=== PATIENT | female | born 1995 | race Caucasian/White ===

== ENCOUNTER 2022-06-17 21:37 | Day surgery (SDC) | payer BC, OTHER ==
[2022-06-17 21:43] VITALS: BMI 31.1
[2022-06-17] MEDS ORDERED: ACETAMINOPHEN 1000 MG/100 ML BAG IVPB ONE (22:44)
[2022-06-17] MEDS ORDERED: SODIUM CHLORIDE 0.9% 500 ML INFUS.BAG IV ONE (22:50)
[2022-06-17] MEDS ORDERED: ACETAMINOPHEN INJECTION 100 ML IVPB ONE (22:51)
[2022-06-17 22:58] LABS: EPI CELLS 18 /uL (0-25.1); HYALINE CASTS 0 /uL (0-3.1); URINE APPEARANCE CLEAR; URINE BACTERIA 186 /uL (0-1359); URINE BILIRUBIN NEGATIVE (NEGATIVE); URINE COLOR ORANGE; URINE GLUCOSE (UA) NEGATIVE (NEGATIVE); URINE KETONE NEGATIVE (NEGATIVE); URINE LEUK ESTERASE 1+ (NEGATIVE); URINE NITRITE NEGATIVE (NEGATIVE); URINE PROTEIN TRACE (NEGATIVE); URINE RBC 658 /uL (0-23.9); URINE WBC 35 /uL (0-25.8)
[2022-06-17 23:19] LABS: BASO % 0.2 % (0-2.0); EOS % 3.5 % (0-4.5); HEMATOCRIT 34.6 % (32.4-45.2); HEMOGLOBIN 11.8 GM/dL (10.7-15.3); LYMPH % 10.8 % (8-40); MCH 31.3 pg (25.7-33.7); MEAN CELL VOLUME 92.1 fl (80-96); MEAN PLT VOLUME 9.8 fl (7.5-11.1); MONO % 13.1 % (3.8-10.2); NEUT % 72.4 % (42.8-82.8); PLATELET COUNT 175 10^3/uL (134-434); RBC 3.76 M/mm3 (3.60-5.2); RDW 12.5 % (11.6-15.6); WHITE BLOOD COUNT 8.6 K/mm3 (4.0-10.0)
[2022-06-17 23:26] LABS: INR 1.15 (0.83-1.09); PROTHROMBIN TIME (PATIENT) 13.3 SEC (9.7-13.0)
[2022-06-17 23:29] LABS: ACTIVATED PTT 29.2 SECONDS (25.2-36.5)
[2022-06-17 23:45] LABS: CALCIUM 8.9 mg/dL (8.5-10.1)
[2022-06-17 23:46] LABS: ALBUMIN 3.9 g/dl (3.4-5.0)
[2022-06-17 23:49] LABS: CREATININE 0.7 mg/dL (0.55-1.3)
[2022-06-17 23:50] LABS: BILIRUBIN,TOTAL 1.7 mg/dL (0.2-1); TOT PROT 7.1 g/dl (6.4-8.2)
[2022-06-18] MEDS ORDERED: PROMETHAZINE HCL 25 MG/1 ML VIAL IVPUSH PRN (03:19)
[2022-06-18] MEDS ORDERED: ONDANSETRON 4 MG/2 ML VIAL IVPUSH PRN (03:19)
[2022-06-18] MEDS ORDERED: ROCURONIUM BROMIDE 50 MG/5 ML SYRINGE ONE (03:21)
[2022-06-18] MEDS ORDERED: MIDAZOLAM HCL 2 MG/2 ML SINGLE DOSE VIAL ONE (03:22)
[2022-06-18] MEDS ORDERED: LIDOCAINE HCL/PF (2%) 40 MG/2 ML VIAL ONE (03:22)
[2022-06-18] MEDS ORDERED: PROPOFOL 20 ML ONE (03:22)
[2022-06-18] MEDS ORDERED: SODIUM CHLORIDE 0.9% P/F 10 ML VIAL IJ ONE (03:23)
[2022-06-18] MEDS ORDERED: ceFAZolin SODIUM 1 GM VIAL ONE (03:23)
[2022-06-18] MEDS ORDERED: LACTATED RINGERS SOLUTION 1,000 ML IV SCH (03:30)
[2022-06-18] MEDS ORDERED: DEXAMETHASONE SOD PHOSPHATE 4 MG/1 ML VIAL ONE (03:37)
[2022-06-18] MEDS ORDERED: ceFAZolin SODIUM 1 GM VIAL IVPB ONE (03:37)
[2022-06-18] MEDS ORDERED: KETOROLAC TROMETHAMINE 30 MG/1 ML VIAL ONE (04:42)
[2022-06-18] MEDS ORDERED: GLYCOPYRROLATE 0.2 MG/1 ML VIAL ONE (04:42)
[2022-06-18] MEDS ORDERED: NEOSTIGMINE METHYLSULFATE 0.5 MG/ML - 10 ML MDV ONE (04:42)
[2022-06-18] MEDS ORDERED: IBUPROFEN 600 MG TABLET (FP) PO PRN (05:01)
[2022-06-18] MEDS ORDERED: ACETAMINOPHEN 325 MG TABLET (FP) PO PRN (05:01)
[2022-06-18] MEDS ORDERED: IBUPROFEN 800 MG/8 ML IJ IVPB PRN (05:01)
[2022-06-18] MEDS ORDERED: oxyCODONE HCL 5 MG TABLET PO PRN (05:01)
[2022-06-18 06:52] VITALS: RESP 18
[2022-06-18 11:36] VITALS: BP 116/73; PULSE 60; TEMP 98.9
== END 2022-06-18 12:35 | disposition home or self-care (01) ==
LOC: JER 21:37 → JASUSAT 06-18 02:06 → J3W 06-18 06:00 → JASUSAT 06-18 12:35
PROVIDERS: ATTEND Obstetrics & Gynecology
PROC: 0UT54ZZ Resection of Right Fallopian Tube, Percutaneous Endoscopic Approach (ICD-10-PCS; 2022-06-18)
PROC: 10T24ZZ Resection of Products of Conception, Ectopic, Percutaneous Endoscopic Approach (ICD-10-PCS; principal; 2022-06-18 02:45)
DX: O00.101 Right tubal pregnancy without intrauterine pregnancy (principal)
CPT/HCPCS: 36415; 76817-TC; 80053; 81003; 84702; 85025; 85610; 85730; 86850; 86900; 86901; 87086; 88305-TC; 93005; 93010; 94760; 99285-25; C9803-CS; U0003; U0005